=== PATIENT | male | born 1980 | race Caucasian/White ===

== ENCOUNTER 2020-09-19 10:35 | Emergency (ER) | payer MEDICAID, SELFPAY ==
[2020-09-19 10:38] VITALS: BP 120/73; PULSE 81; RESP 18; TEMP 36.7; O2SAT 100; BMI 22.1
--- NOTE | 2020-09-19 11:32 | ED.NECK ---
HPI - Neck Pain/Injury General Chief Complaint: Neck Pain/Injury Stated Complaint: neck pain Time Seen by Provider: 09/19/20 11:32 Source: patient Mode of arrival: ambulatory Limitations: no limitations History of Present Illness HPI Narrative: Patient is a 40-year-old male with no significant past medical history who reports 3 days of neck pain that he woke up with. States he does have a new pillow.. He has been using Daniel-Bonner with no relief. Denies any fevers cough chest pain shortness of breath. States any [id number] medication he has taken has not helped. Denies injury. Related Data Previous Rx's Medication Instructions Recorded cyclobenzaprine 5 mg PO TID PRN 3 Days #10 tab 09/19/20 naproxen 500 mg PO BID PRN #14 tab 09/19/20 Allergies Allergy/AdvReac Type Severity Reaction Status Date / Time No Known Allergies Allergy Unverified 02/09/20 17:06 [No Known Allergies*] Review of Systems Review of Systems: Yes all other systems are reviewed and are negative PMFSH Past Medical History Medical History Patient denies significant medical history Surgical History No pertinent past surgical history Social History Social History Advance Directives: No Advance Directives Information Provided: No Physical Exam Vital Signs: Vital Signs: Last Vital Signs Temp 98.0 F 09/19/20 10:38 Pulse 81 09/19/20 10:38 Resp 18 09/19/20 10:38 BP 120/73 09/19/20 10:38 Pulse Ox 100 09/19/20 10:38 Body Mass Index 22.1 Const: General: cooperative, healthy appearing and comfortable Nutritional Appearance: thin Orientation/consciousness: patient oriented x3 HENMT: Head: Yes normal to inspection, Yes normocephalic, Yes atraumatic, No abrasion, No Lam's sign and No raccoon eyes Ears: hearing grossly normal bilaterally and external ears normal General nose exam: Normal external nose present Face and sinus: Yes normal facial exam Neck: Neck: Yes normal visual inspection, No full ROM (Secondary to pain), Yes no meningeal signs, Yes trachea midline, No anterior neck swelling, No midline deformity, Yes tender and Yes torticollis Resp: Effort & Inspection: normal respiratory effort and able to speak in complete sentences Neuro: General: patient oriented x3 and no meningeal signs Course Course Course Narrative: Patient is a 40-year-old male with no significant past medical history who has had neck pain since getting a new pillow 3 days ago. Has used [id number] medications with no relief. Physical exam reveals toward a Colles, both sides of the neck. Patient's vital signs are stable. Will discharge with naproxen and muscle relaxer. Discharge Plan Discharge Clinical Impression: Muscle spasm Patient Disposition: Home, Self-Care Instructions: Muscle Spasm (ED) Additional Instructions: As discussed, please use ice or heat, whichever feels better, I sent prescriptions for naproxen and Flexeril to your pharmacy. If her neck pain does not improve in the next few days, please follow-up with your PCP. If you develop a fever that you can not control with Tylenol or Motrin, please return to the emergency department. Also, please replace her pillow is that seems to be the source of your issue. Prescriptions: New naproxen 500 mg tablet 500 mg PO BID PRN (Reason: pain) Qty: 14 RF: 0 cyclobenzaprine 5 mg tablet 5 mg PO TID PRN (Reason: muscle spasm) 3 Days Qty: 10 RF: 0 Stand Alone Forms: Work/School Release
== END 2020-09-19 12:13 | disposition home or self-care (01) ==
PROVIDERS: Emergency Provider Emergency Medicine Emergency Medical Services; PCP Internal Medicine
DX: M62.838 Other muscle spasm (principal); M54.2 Cervicalgia
CPT/HCPCS: 99283

== ENCOUNTER 2020-09-29 11:34 | Emergency (ER) | payer MEDICAID, SELFPAY ==
--- NOTE | ~2020-09-29 | XR_ITS ---
EXAMINATION: XR CERVICAL SPINE CLINICAL INFORMATION: Neck pain status post fall. COMPARISON: None TECHNIQUE: 3 views of the cervical spine were obtained. FINDINGS: There is reversal the normal cervical lordosis with normal spinal alignment. Mild to moderate multilevel degenerative changes are seen with disc space narrowing and moderate anterior osteophyte formation. There is no acute fracture. The odontoid process is intact. The prevertebral soft tissues are unremarkable. XR/XR cervical spine 2V IMPRESSION: 1. Reversal the normal cervical lordosis may be secondary to positioning of several muscle spasm. 2. Mild to moderate multilevel degenerative changes without acute abnormality.
[2020-09-29 11:38] VITALS: BP 135/48; PULSE 78; RESP 16; TEMP 36.4; O2SAT 100; BMI 22.1
--- NOTE | 2020-09-29 12:18 | ED_ITS ---
HPI - Neck Pain/Injury General Chief Complaint: Neck Pain/Injury Stated Complaint: fall Time Seen by Provider: 09/29/20 12:16 Source: patient Mode of arrival: ambulatory Limitations: no limitations History of Present Illness HPI Narrative: 40-year-old male here with neck pain. Patient tells me about a week ago he had a fall out of bed and since then he has had some neck discomfort. No head injury or loss of consciousness. Seen here several days ago and was evaluated. Pain thought to be musculoskeletal and he was prescribed naproxen and Flexeril. Pain is continued and he now has stiffness in his neck and a lot of pain with movement of his head. Related Data Previous Rx's Medication Instructions Recorded cyclobenzaprine 5 mg PO TID PRN 3 Days #10 tab 09/19/20 naproxen 500 mg PO BID PRN #14 tab 09/19/20 diazepam [Valium] 5 mg PO TID PRN #10 tab 09/29/20 ibuprofen 800 mg PO Q8H PRN #20 tab 09/29/20 Allergies Allergy/AdvReac Type Severity Reaction Status Date / Time No Known Allergies Allergy Unverified 02/09/20 17:06 [No Known Allergies*] Review of Systems Review of Systems: Yes all other systems are reviewed and are negative Constitutional: Constitutional: Reports no additional constitutional complaints, Denies body ache(s), Denies chills, Denies fever(s), Denies headache(s) and Denies weakness Eyes: Eyes: Reports no additional eye complaints and Denies change in vision ENT: Reports system reviewed and no additional complaints, except as documented, Denies dizziness, Denies headache(s), Denies nasal congestion, Denies nasal discharge and Reports neck pain Cardiovascular: Cardiovascular: Reports no additional cardiovascular complaints, Denies chest pain, Denies leg edema and Denies dyspnea Respiratory: Respiratory: Reports no additional respiratory complaints, Denies cough and Denies dyspnea Gastrointestinal: Gastrointestinal: Reports no additional gastrointestinal complaints, Denies abdominal pain, Denies diarrhea, Denies nausea and Denies vomiting Genitourinary: Genitourinary: Denies urinary incontinence Musculoskeletal: Musculoskeletal: Reports no additional musculoskeletal complaints, Denies back pain, Denies arthralgias, Denies joint swelling, Reports neck pain, Denies numbness and Denies tingling Integumentary/Breasts: Skin/Breast: Reports system reviewed and no additional complaints, except as docu and Denies rash Neurologic: Reports system reviewed and no additional complaints, except as documented, Denies Abnormal speech present, Denies dizziness, Denies headache(s), Denies numbness, Denies tingling and Denies weakness PMFSH Past Medical History Attestation statement: The following information was validated with the patient. Source: old records reviewed and nursing notes reviewed Medical History Patient denies significant medical history Surgical History No pertinent past surgical history Social History Social History Advance Directives: No Advance Directives Information Provided: No Physical Exam Vital Signs: Vital Signs: Last Vital Signs Temp 97.5 F 09/29/20 11:38 Pulse 78 09/29/20 11:38 Resp 16 09/29/20 11:38 BP 135/48 L 09/29/20 11:38 Pulse Ox 100 09/29/20 11:38 Body Mass Index 22.1 Const: General: cooperative, healthy appearing, comfortable and no acute distress Orientation/consciousness: patient oriented x3 Limitations: no limitations HENMT: Head: Yes normal to inspection Ears: hearing grossly normal bilaterally General nose exam: Normal external nose present Face and sinus: Yes normal facial exam Mouth: Normal oral and palatal mucosa present Throat: Yes posterior oropharynx normal Eyes: General: appearance normal, both eyes and all related structures Pupils: Equal, round and reactive pupils present Neck: Other: Patient has some cervical midline tenderness with no step-offs or deformities. Pain with rotation of the head and is limited due to pain. No pa in with flexion or extension Neck: Yes normal visual inspection, Yes no lymphadenopathy and Yes no meningeal signs Chest: Chest palpation & inspection: normal inspection of the chest Resp: Effort & Inspection: normal respiratory effort Auscultation: clear to auscultation bilaterally Cardio: Rate: regular rate Rhythm: regular rhythm Peripheral pulses: Peripheral pulses 2+ throughout GI: Inspection: Yes normal to inspection Palpation (GI): Soft to palpation and nontender Auscultation: normal bowel sounds Back/Spine/Pelvis: Thoracic/Lumbar Spine: thoracic and lumbar spine normal to inspection Skin: General skin exam: no rashes or lesions noted Neuro: General: patient oriented x3, no meningeal signs, no focal motor deficits and normal sensation to monofilament Cranial nerves: Yes CN's II-XII intact bilaterally, Yes Equal, round and reactive pupils present, Yes Bilaterally intact EOM present, Yes Nystagmus not present, Yes Normal facial strength present and Yes Midline tongue present Cognition (Neuro): normal cognition Speech: No Abnormal speech present Gait exam (Neuro): Normal gait present Motor exam (neuro): 5/5 motor strength present throughout Sensory Exam: Normal double simultaneous stimulation for sensation Extrem: General: Yes normal to inspection Course Course Course Narrative: 40-year-old male here with neck pain for the last week patient tells me initially had an injury. He has been seen and prescribed some anti-inflammatories and muscle relaxants with continued pain. On exam the patient has some obvious muscle spasms with musculoskeletal pain. He does have some midline tenderness but no step-offs or deformities with a normal neurological exam. Exam is consistent with torticollis. Will check imaging as this patient's 2nd visit and he has not had imaging to this point. Will provide analgesia. 1415-x-ray show no bony abnormality. Patient has much improvement after receiving Toradol im, Valium p.o. Likely torticollis. Reviewed worrisome signs and symptoms of when to return to the emergency department. Comfortable discharge home. MDM - Neck Pain/Injury Medical Records Attestation: I reviewed the patient's medical records. Lab Data Attestation: I reviewed the patient's lab results. Imaging Data cervical xray: Attestation: I personally reviewed and interpreted this imaging study as follows: Radiologist's impression: IMPRESSION: 1. Reversal the normal cervical lordosis may be secondary to positioning of several muscle spasm. 2. Mild to moderate multilevel degenerative changes without acute abnormality. Discharge Plan Discharge Clinical Impression: Torticollis Patient Disposition: Home, Self-Care Instructions: Spasmodic Torticollis (ED) Additional Instructions: Your x-ray showed no acute findings You have muscle spasm causing this stiff and painful neck. Gentle stretching with heat See your doctor Thursday as you may need physical therapy. Prescriptions: New ibuprofen 800 mg tablet 800 mg PO Q8H PRN (Reason: pain) Qty: 20 RF: 0 diazepam [Valium] 5 mg tablet 5 mg PO TID PRN (Reason: muscle spasm) Qty: 10 RF: 0 No Action naproxen 500 mg tablet 500 mg PO BID PRN (Reason: pain) Qty: 14 RF: 0 cyclobenzaprine 5 mg tablet 5 mg PO TID PRN (Reason: muscle spasm) 3 Days Qty: 10 RF: 0 Referrals: Radha King MD [Primary Care Provider] - 2 days Stand Alone Forms: Work/School Release Interventions: ED Discharge Assessment Last Done: 09/29/20 13:51 Discharge Date/Time: 09/29/20 13:51
[2020-09-29] MEDS: diazePAM 5 MG TABLET 10 MG PO (12:30)
[2020-09-29] MEDS: Ketorolac Tromethamine 60 MG/2 ML VIAL IM (12:30)
== END 2020-09-29 13:51 | disposition home or self-care (01) ==
PROVIDERS: Emergency Provider Emergency Medicine; PCP Internal Medicine
DX: G24.3 Spasmodic torticollis (principal); M54.2 Cervicalgia
CPT/HCPCS: 72040; 96372; 99283; 99284; J1885

== ENCOUNTER 2020-10-23 11:54 | Emergency (ER) | payer MEDICAID, SELFPAY ==
--- NOTE | ~2020-10-23 | CT_ITS ---
EXAMINATION: CT HEAD WITHOUT CONTRAST CLINICAL INFORMATION: Headache COMPARISON: None TECHNIQUE: Contiguous axial imaging was performed from the skull base to vertex without intravenous administration of contrast. This CT examination was performed using dose optimization techniques as appropriate, variously including the following: *Automated exposure control *Adjustment of mA and/or kV according to patient size (this includes techniques or standardized protocols for targeted exams where dose is matched to indication/reason for exam; i.e. extremities or head) *Use of iterative reconstruction technique DLP: 692 mGy-cm FINDINGS: There is no evidence of acute intracranial hemorrhage or territorial infarction. No abnormal mass effect or midline shift is seen. Harrington to white matter differentiation is well preserved. No extra-axial fluid collections are identified. The ventricles are normal in size. There is no abnormal attenuation within the brain parenchyma. The osseous structures and soft tissues are normal. The mastoid air cells and visualized portions of the paranasal sinuses are well aerated. CT/CT head/brain wo con IMPRESSION: No acute intracranial process seen.
[2020-10-23 12:07] VITALS: BP 99/48; PULSE 76; RESP 18; TEMP 36.8; O2SAT 99; BMI 22.1
--- NOTE | 2020-10-23 13:59 | ED.NECK ---
HPI - Neck Pain/Injury General Chief Complaint: Neck Pain/Injury Stated Complaint: pain on neck Time Seen by Provider: 10/23/20 13:59 History of Present Illness HPI Narrative: Patient complains of both neck plain and headache, the headache is over his whole head and down into his neck, the neck pain is worse with looking left and right, the he denies any fever chills, his neck pain began 6-8 weeks ago and he had a fall and came to this ER and had an x-ray and was diagnosed with muscle strain in his neck, headache was gradual onset and he believes it is associated with his neck pain as the neck pain has been going on for over a month and the headache gradually worsened over past week, no vision change no nausea or vomiting no numbness weakness or tingling no changes to bowel or bladder Related Data Previous Rx's Medication Instructions Recorded cyclobenzaprine 5 mg PO TID PRN 3 Days #10 tab 09/19/20 naproxen 500 mg PO BID PRN #14 tab 09/19/20 diazepam [Valium] 5 mg PO TID PRN #10 tab 09/29/20 ibuprofen 800 mg PO Q8H PRN #20 tab 09/29/20 acetaminophen 1,000 mg PO Q6H PRN #30 tab 10/23/20 cyclobenzaprine 5 mg PO TID PRN #20 tab 10/23/20 ibuprofen 600 mg PO Q6H PRN #20 tab 10/23/20 lidocaine 1 patch TOPICAL BID PRN #15 ea 10/23/20 Allergies Allergy/AdvReac Type Severity Reaction Status Date / Time No Known Allergies Allergy Verified 10/28/20 16:18 [No Known Allergies*] Review of Systems Review of Systems: Positive for neck pain and headache Negatives are no fever no chills no dizziness no weakness no fainting no feeling faint no numbness weakness or tingling no vision changes no nausea or vomiting no confusion, there is no chest pain no shortness of breath no abdominal pain no nausea vomiting or diarrhea no dysuria no incontinence, there is no skin rash Yes all other systems are reviewed and are negative [facility] Past Medical History Attestation statement: The following information was validated with the patient. [facility] Narrative: Patient denies any recent IV drug use Source: nursing notes reviewed Medical History (Updated 10/29/20 @ 00:01 by Kevin Mcgill) Hx of opioid abuse Patient denies significant medical history Surgical History No pertinent past surgical history Social History Social History Alcohol intake: never Patient Tobacco Use Status: Current everyday Tobacco user Substance Use Type: Heroin and Marijuana Physical Exam Vital Signs: Vital Signs: Last Vital Signs Temp 97.6 F 10/23/20 15:03 Pulse 59 10/23/20 15:03 Resp 14 10/23/20 15:03 BP 97/59 L 10/23/20 15:03 Pulse Ox 98 10/23/20 15:03 Body Mass Index 22.1 General appearance is no acute distress The head is normocephalic atraumatic Pupils are equal round reactive to light, extraocular motions are intact The ears have normal tympanic membrane The neck as bilateral posterior soft tissue tenderness, the neck can flex forward and back easily but has pain with lateral motion, there are no deformities there are no rashes The chest is clear to auscultation bilateral The heart no murmur The abdomen is soft nontender Extremities full range of motion x4 Neuro gait and balance are normal, communication both expression and understanding are normal, motor is 5/5 x4, stock puller strength is intact and symmetrical, sensation is intact and symmetrical Course Course Course Narrative: Patient without neurologic deficit complaining of neck pain and headache The CT scan was done to rule out bleed or mass and it was negative The patient is neck pain most likely musculoskeletal has been going on for almost 2 months and he is advised to follow with primary doctor and is given the phone number for [facility] He denies any recent drug use and denies any fever or chills, epidural abscess very unlikely Discharge Plan Discharge Clinical Impression: Headache, Neck pain Patient Disposition: Home, Self-Care Additional Instructions: CT of head to rule out mass or bleed was negative X-ray of cervical spine that was done a few weeks ago showed some arthritis Follow with primary doctor for referral to specialist, physical therapy may be helpful You can try [facility] but probably need a referral from a primary doctor [phone] You can try to follow with our orthopedist who may be able to get you into physical therapy Return anytime for weakness fever, any worse condition or any concerns Prescriptions: New acetaminophen 500 mg tablet 1,000 mg PO Q6H PRN (Reason: pain) Qty: 30 RF: 0 ibuprofen 600 mg tablet 600 mg PO Q6H PRN (Reason: pain) Qty: 20 RF: 0 cyclobenzaprine 5 mg tablet 5 mg PO TID PRN (Reason: muscle spasm) Qty: 20 RF: 0 lidocaine 4 % adhesive patch,medicated 1 patch topical BID PRN (Reason: pain) Qty: 15 RF: 0 No Action ibuprofen 800 mg tablet 800 mg PO Q8H PRN (Reason: pain) Qty: 20 RF: 0 diazepam [Valium] 5 mg tablet 5 mg PO TID PRN (Reason: muscle spasm) Qty: 10 RF: 0 naproxen 500 mg tablet 500 mg PO BID PRN (Reason: pain) Qty: 14 RF: 0 cyclobenzaprine 5 mg tablet 5 mg PO TID PRN (Reason: muscle spasm) 3 Days Qty: 10 RF: 0 Referrals: Gurmeet Ireland MD [Physician] - 2 days (Bilateral shoulder and neck pain) Stand Alone Forms: Work/School Release Interventions: ED Discharge Assessment Last Done: 10/23/20 15:52 Discharge Date/Time: 10/23/20 15:53
[2020-10-23 15:03] VITALS: BP 97/59; PULSE 59; RESP 14; TEMP 36.4; O2SAT 98
== END 2020-10-23 15:53 | disposition home or self-care (01) ==
PROVIDERS: Emergency Provider Emergency Medicine
DX: R51.9 Headache, unspecified (principal); M54.2 Cervicalgia
CPT/HCPCS: 70450; 99283

== ENCOUNTER 2020-10-28 15:56 | Emergency (ER) | payer MEDICAID, SELFPAY ==
--- NOTE | ~2020-10-28 | CT_ITS ---
EXAMINATION: CT CERVICAL SPINE CLINICAL INFORMATION: Reason for Exam cervucal epidural abscess? neck pain. elevated ESR. no MRI COMPARISON: No prior CT available, TECHNIQUE: Computed axial sagittal and coronal images acquired using department's standard protocol. This CT examination was performed using dose optimization techniques as appropriate, variously including the following: *Automated exposure control *Adjustment of mA and/or kV according to patient size (this includes techniques or standardized protocols for targeted exams where dose is matched to indication/reason for exam; i.e. extremities or head) *Use of iterative reconstruction technique CONTRAST: Study done without and with contrast, DLP: 323 mGy-cm FINDINGS: SKULL BASE: Visualized structures at skull base are normal, Included facial sinuses are clear, CERVICAL VERTEBRAE: Reversal of normal cervical lordosis likely spasm. DISCS: Narrowing of disc space and developed osteophytes suggests degenerative disc disease at C3-C4, C4-C5, C5-C6, C6-C7 and C7-T1. There is cortical irregularity of the odontoid process of C2, surrounding soft tissue swelling and increased single air bubble, raising concern for possible inflammatory or infectious process. Cannot rule out small epidural abscess. Refer image 54 series 10. C1-C2: There is no CT evidence of significant osseous narrowing of the central canal or neural foramen. C2-C3: There is no CT evidence of significant osseous narrowing of the central canal or neural foramen. C3-C4: There is no CT evidence of significant osseous narrowing of the central canal or neural foramen. C4-C5: There is no CT evidence of significant osseous narrowing of the central canal or neural foramen. C5-C6: There is no CT evidence of significant osseous narrowing of the central canal or neural foramen. C6-C7: There is no CT evidence of significant osseous narrowing of the central canal or neural foramen. C7-T1: There is no CT evidence of significant osseous narrowing of the central canal or neural foramen. CT/CT cervical spine w con IMPRESSION: 1. Reversal of normal cervical lordosis likely spasm. 2. Narrowing of disc spaces and developed large anterior osteophytes suggests degenerative disc disease, this is seen at multiple levels C3-C4 through C7-T1. 3. There is cortical irregularity subtle distortion of the odontoid process of C2 combined with surrounding soft tissue swelling and emphysematous air bubble, although nonspecific concerning for inflammatory or infection process including possible developing epidural abscess. Weaver image, CT scan has limited sensitivity evaluating the epidural space and visualizing of the spinal cord due to beam hardening artifact, would recommend clinically correlation and follow-up MRI with contrast.
[2020-10-28 16:18] VITALS: BP 115/71; PULSE 56; RESP 16; TEMP 37; O2SAT 97; BMI 22.1
[2020-10-28] MEDS: ondansetron HCL 4 MG/2 ML VIAL IVPUSH (17:53)
[2020-10-28] MEDS: 0.9 % Sodium Chloride 1,000 ML 999 ML IV (17:53)
[2020-10-28 17:54] LABS: MANUAL DIFF FLAG NO
[2020-10-28 18:00] VITALS: BP 115/60; PULSE 51; RESP 16; TEMP 37.7; O2SAT 97
--- NOTE | 2020-10-28 18:02 | ECG_ITS ---
Test Reason : NASUEA/VOMITING Blood Pressure : / mmHG Vent. Rate : 049 BPM Atrial Rate : 049 BPM P-R Int : 110 ms QRS Dur : 082 ms QT Int : 422 ms P-R-T Axes : 010 053 070 degrees QTc Int : 381 ms Sinus bradycardia with short HI Otherwise normal ECG When compared with ECG of 29-MAR-2005 20:50, Vent. rate has decreased BY [address] no longer depressed in Inferior leads Non-specific change in ST segment in Lateral leads QT has shortened Referred By: Kody Mejia Electronically Signed By:Jt Jolley
[2020-10-28 18:03] LABS: Basophils Percent Auto 0.1 % (0-2); Hemoglobin 10.7 g/dl (14.0-18.0); Imm Gran Abs Auto 0.06 X10*3/uL (0.00-0.03); Imm Gran Pct Auto 0.5 % (0.0-0.4); Lymphocytes Absolute Auto 0.7 X10*3/uL (1.2-4.9); Lymphocytes Percent Auto 5.8 % (20-40); Mean Corpuscular HGB Conc 32.4 g/dl (31.0-36.0); Mean Corpuscular Hemoglobin 27.9 pg (27.0-33.0); Mean Corpuscular Volume 86.2 fL (80-98); Mean Platelet Volume 9.6 fL (9.4-12.4); Monocytes Absolute Auto 0.5 X10*3/uL (0.1-1.2); Monocytes Percent Auto 3.9 % (2-11); Neutrophils Percent Auto 89.7 % (45-73); Platelet Count 310 X10*3/uL (160-400); Red Blood Count 3.83 X10*6/uL (4.60-5.80); Red Cell Distribution Width 14.1 % (11.0-16.0); White Blood Count 12.2 X10*3/uL (4.8-10.8)
[2020-10-28 18:18] LABS: COVID-19 Test Negative (Negative)
[2020-10-28 18:20] LABS: Anion Gap 15 (12-20); Blood Urea Nitrogen 27 mg/dL (9-16); Calcium 9.2 mg/dL (8.4-10.2); Carbon Dioxide 30 mmol/L (22-29); Chloride 97 mmol/L (96-108); Creatinine Clr Calc Pharmacy 96.4; Estimated Glomerular Filt Rate > 60; Glucose Random 124 mg/dL (60-115); Potassium 4.3 mmol/L (3.3-5.1); Sodium 138 mmol/L (135-145)
[2020-10-28 18:21] LABS: Alanine Aminotransferase 12 U/L (0-40); Albumin Level 3.7 g/dL (3.5-5.0); Alkaline Phosphatase 90 U/L (39-117); Aspartate Amino Transferase 12 U/L (5-37); Bilirubin Direct 0.2 mg/dL (0.0-0.5); Bilirubin Total 0.6 mg/dL (0.0-1.0); Lipase 8 U/L (8-78); Total Protein 8.2 g/dL (6.5-8.0)
--- NOTE | 2020-10-28 18:27 | ED_ITS ---
HPI - Nausea/Vomiting/Diarrhea General Chief complaint: Nausea/Vomiting/Diarrhea Stated complaint: vomiting Time Seen by Provider: 10/28/20 17:37 Source: patient Mode of arrival: ambulatory Limitations: no limitations History of Present Illness HPI Narrative: Patient presents to ED for nausea, and since yesterday after taking Suboxone. Patient states he missed his Suboxone doses on October 24 and October 25 and then on October 26 he used heroin and then on October 27 took Suboxone very early in the morning. Patient thinks he put himself in withdrawal due to now waiting long enough to do Suboxone before taking heroin. Patient used Suboxone less than 12 hours after using heroin. Patient secondary complaint chronic posterior cervical neck pain radiated up to head for 1 month. Patient states neck has felt stiff the past month. patieint states no photophobia, fever, or chills. Patient denies any recent head trauma or neck trauma. MD elicited complaint: nausea and vomiting Associated nausea: Yes Related Data Previous Rx's Medication Instructions Recorded cyclobenzaprine 5 mg PO TID PRN 3 Days #10 tab 09/19/20 naproxen 500 mg PO BID PRN #14 tab 09/19/20 diazepam [Valium] 5 mg PO TID PRN #10 tab 09/29/20 ibuprofen 800 mg PO Q8H PRN #20 tab 09/29/20 acetaminophen 1,000 mg PO Q6H PRN #30 tab 10/23/20 cyclobenzaprine 5 mg PO TID PRN #20 tab 10/23/20 ibuprofen 600 mg PO Q6H PRN #20 tab 10/23/20 lidocaine 1 patch TOPICAL BID PRN #15 ea 10/23/20 Allergies Allergy/AdvReac Type Severity Reaction Status Date / Time No Known Allergies Allergy Verified 10/28/20 16:18 [No Known Allergies*] Review of Systems Review of Systems: Yes all other systems are reviewed and are negative Constitutional: Constitutional: Reports as per HPI and Reports no additional constitutional complaints Eyes: Eyes: Reports as per HPI and Reports no additional eye complaints ENT: Reports system reviewed and no additional complaints, except as documented, Reports as per HPI and Reports neck pain Cardiovascular: Cardiovascular: Reports as per HPI and Reports no additional cardiovascular complaints Respiratory: Respiratory: Reports as per HPI and Reports no additional respiratory complaints Gastrointestinal: Gastrointestinal: Reports as per HPI, Reports no additional gastrointestinal complaints, Reports nausea and Reports vomiting Genitourinary: Genitourinary: Reports no additional male genitourinary complaints and Reports as per HPI Musculoskeletal: Musculoskeletal: Reports no additional musculoskeletal complaints, Reports as per HPI and Reports neck pain Neurologic: Reports system reviewed and no additional complaints, except as documented and Reports as per HPI Psychiatric: Psychiatric: Reports no additional psychiatric complaints and Reports as per HPI [facility] Past Medical History Medical History (Updated 10/28/20 @ 22:10 by NEHAL Caballero) Hx of opioid abuse Patient denies significant medical history Surgical History No pertinent past surgical history Social History Social History Alcohol intake: never Patient Tobacco Use Status: Current everyday Tobacco user Use of substances other than those prescribed or required for medical reasons: Yes Substance Use Type: Heroin and Marijuana Advance Directives: No Advance Directives Information Provided: No Physical Exam Vital Signs: Vital Signs: Last Vital Signs Temp 98.4 F 10/28/20 21:16 Pulse 56 10/28/20 21:16 Resp 16 10/28/20 21:16 BP 107/64 10/28/20 21:16 Pulse Ox 98 10/28/20 21:16 Body Mass Index 22.1 Const: General: cooperative, healthy appearing, comfortable, no acute distress, well developed, alert and awake Orientation/consciousness: patient oriented x3 HENMT: Head: Yes normal to inspection, Yes No palpable skull fracture present, Yes normocephalic, Yes atraumatic, No abrasion, No Acrocyanosis present, No Lam's sign, No contusion, No cranial bruits, No hematoma, No laceration, No occipital foramen tenderness, No palpable skull fracture, No raccoon eyes, No scalp lesion, No scalp tenderness, No Temporal artery tenderness present and No periorbital ecchymosis Eyes: Other: Negative photophobia Neck: Neck: Yes normal visual inspection, Yes full ROM, Yes no lymp hadenopathy, Yes no meningeal signs, Yes trachea midline, Yes supple and Yes tender Chest: Chest palpation & inspection: normal inspection of the chest and normal palpation of entire chest wall Resp: Effort & Inspection: normal respiratory effort and able to speak in complete sentences Auscultation: clear to auscultation bilaterally Cardio: Jugular venous distension: no JVD Heart sounds: S1 normal heart sound present and S2 normal heart sound present GI: Inspection: Yes normal to inspection and No abdominal wall ecchymosis Palpation (GI): Soft to palpation, not firm, nontender, no guarding and not rigid : General: No CVA tenderness and Yes no CVA tenderness Back/Spine/Pelvis: Back: no CVA tenderness, No CVA tenderness and No back tenderness Skin: General skin exam: no rashes or lesions noted and elasticity normal Neuro: Other: All extremities equal strength 5+. Negative pronator drift. Negative slurred speech. negative facial droop. [id number] and rapid hand movement intact. Negative Romberg. General: patient oriented x3, gait normal, no meningeal signs and CN's II-XI intact bilaterally Cranial nerves: Yes CN's II-XII intact bilaterally Extrem: General: Yes normal to inspection and Yes full ROM Psych: Appearance: grossly normal, well kempt and not disheveled Course Course Course Narrative: Patient given labs, fluid, blood work, EKG, COVID swab ordered. Reevaluation(s) Reevaluation #1: Patient is sleeping comfortably in bed. Patient COVID swab came back negative. Patient's has low-grade fever 99.9. Patient has elevation white blood cell count. Patient not having any nausea or vomitting in the ED. Nausea and vomiting might have been contributed to withdrawal symptoms. Patient informed me having neck pain is worse of movement. Due to history of drug abuse labs was sent for ESR and CRP. Patient had a normal head CT in October 23. EKG does show sinus bradycardia. Troponin negative. Time: 17:47 Reevaluation #2: Patient's ESR and CRP came back elevated. Negative for any neuro deficit. Patient denies any headache. Will send patient for cervical spine CT for evaluation for possible cervical spine epidural abscess due to us not having MRI at this time. Not suspecting meningitis. Reevaluation #3: CT scan shows possibility for cervical epidural abscess. I w ant to re-evaluate patient patient does not have any neuro deficit of extremities. Patient is not toxic appearing. Patient vital signs are normal. Spoke with Dr. Encarnacion of [facility] for transfer for possibility of cervical spine epidural abscess and for confirmation with MRI. He accepted the case. Patient agreeable with plan to be transferred. Time: 22:08 MDM - Nausea/Vomiting/Diarrhea MDM Narrative Medical decision making narrative: Rule out cervical epidural spine abscess Lab Data Result diagrams: 10/28/20 17:47 10/28/20 17:47 Labs: Lab Results 10/28/20 10/28/20 10/28/20 Range/Units 17:47 17:47 17:47 WBC 12.2 H (4.8-10.8) X10*3/uL RBC 3.83 L (4.60-5.80) X10*6/uL Hgb 10.7 L (14.0-18.0) g/dl Hct 33.0 L (42-52) % MCV 86.2 (80-98) fL MCH 27.9 (27.0-33.0) pg MCHC 32.4 (31.0-36.0) g/dl RDW 14.1 (11.0-16.0) % Plt Count 310 (160-400) X10*3/uL MPV 9.6 (9.4-12.4) fL Immature Gran % (Auto) 0.5 H (0.0-0.4) % Neut % (Auto) 89.7 H (45-73) % Lymph % (Auto) 5.8 L (20-40) % [place] % (Auto) 3.9 (2-11) % Eos % (Auto) 0.0 (0-4) % Baso % (Auto) 0.1 (0-2) % Lymph # (Auto) 0.7 L (1.2-4.9) X10*3/uL [place] # (Auto) 0.5 (0.1-1.2) X10*3/uL Eos # (Auto) 0.0 (0.0-0.4) X10*3/uL Baso # (Auto) 0.0 (0.0-0.2) X10*3/uL Abs Immat Gran (auto) 0.06 H (0.00-0.03) X10*3/uL Absolute Neuts (auto) 11.0 H (2.0-8.3) X10*3/uL Absolute Nucleated RBC 0.000 (0.0-0.012) X10*3/uL Nucleated RBC % (auto) 0.0 (0.0-0.2) /100WBC ESR (0-15) MM/HR Sodium 138 (135-145) mmol/L Potassium 4.3 (3.3-5.1) mmol/L Chloride 97 (96-108) mmol/L Carbon Dioxide 30 H (22-29) mmol/L Anion Gap 15 (12-20) BUN 27 H (9-16) mg/dL Creatinine 0.97 (0.5-1.4) mg/dL Estim Creat Clear Calc 96.4 Estimated GFR > 60 Random Glucose 124 H (60-115) mg/dL Calcium 9.2 (8.4-10.2) mg/dL Total Bilirubin 0.6 (0.0-1.0) mg/dL Direct Bilirubin 0.2 (0.0-0.5) mg/dL AST 12 (5-37) U/L ALT 12 (0-40) U/L Alkaline Phosphatase 90 (39-117) U/L Troponin I High Sens (<3.5-35.0) ng/L C-Reactive Protein 11.93 H (< or = 0.50) mg/dL Total Protein 8.2 H (6.5-8.0) g/dL Albumin 3.7 (3.5-5.0) g/dL Lipase 8 (8-78) U/L Urine Color Urine Appearance Urine pH (5.0-8.0) Ur Specific Odell (1.005-1.025) Urine Protein (NEG-TRACE) MG/DL Urine Glucose (UA) (NEG) MG/DL Urine Ketones (NEG) MG/DL Urine Blood (NEG) Urine Nitrite (NEG) Ur Leukocyte Esterase (NEG) Urine RBC (0) /HPF Urine WBC (0-4) /HPF Ur Squamous Epith Cells /LPF Urine Bacteria /LPF Urine Mucus /LPF Urine Opiates Screen (Not Detect) Ur Barbiturates Screen (Not Detect) Ur Phencyclidine Scrn (Not Detect) Ur Amphetamines Screen (Not Detect) U Benzodiazepines Scrn (Not Detect) Urine Cocaine Screen (Not Detect) U Marijuana (THC) Screen (Not Detect) COVID-19 ([facility]) (Negative) COVID-19 Clin Com 06/06/21 06/06/21 06/06/21 Range/Units 17:47 17:47 19:20 WBC (4.8-10.8) X10*3/uL RBC (4.60-5.80) X10*6/uL Hgb (14.0-18.0) g/dl Hct (42-52) % MCV (80-98) fL MCH (27.0-33.0) pg MCHC (31.0-36.0) g/dl RDW (11.0-16.0) % Plt Count (160-400) X10*3/uL MPV (9.4-12.4) fL Immature Gran % (Auto) (0.0-0.4) % Neut % (Auto) (45-73) % Lymph % (Auto) (20-40) % [place] % (Auto) (2-11) % Eos % (Auto) (0-4) % Baso % (Auto) (0-2) % Lymph # (Auto) (1.2-4.9) X10*3/uL [place] # (Auto) (0.1-1.2) X10*3/uL Eos # (Auto) (0.0-0.4) X10*3/uL Baso # (Auto) (0.0-0.2) X10*3/uL Abs Immat Gran (auto) (0.00-0.03) X10*3/uL Absolute Neuts (auto) (2.0-8.3) X10*3/uL Absolute Nucleated RBC (0.0-0.012) X10*3/uL Nucleated RBC % (auto) (0.0-0.2) /100WBC ESR 98 H (0-15) MM/HR Sodium (135-145) mmol/L Potassium (3.3-5.1) mmol/L Chloride (96-108) mmol/L Carbon Dioxide (22-29) mmol/L Anion Gap (12-20) BUN (9-16) mg/dL Creatinine (0.5-1.4) mg/dL Estim Creat Clear Calc Estimated GFR Random Glucose (60-115) mg/dL Calcium (8.4-10.2) mg/dL Total Bilirubin (0.0-1.0) mg/dL Direct Bilirubin (0.0-0.5) mg/dL AST (5-37) U/L ALT (0-40) U/L Alkaline Phosphatase (39-117) U/L Troponin I High Sens < 3.5 (<3.5-35.0) ng/L C-Reactive Protein (< or = 0.50) mg/dL Total Protein (6.5-8.0) g/dL Albumin (3.5-5.0) g/dL Lipase (8-78) U/L Urine Color Urine Appearance Urine pH (5.0-8.0) Ur Specific Odell (1.005-1.025) Urine Protein (NEG-TRACE) MG/DL Urine Glucose (UA) (NEG) MG/DL Urine Ketones (NEG) MG/DL Urine Blood (NEG) Urine Nitrite (NEG) Ur Leukocyte Esterase (NEG) Urine RBC (0) /HPF Urine WBC (0-4) /HPF Ur Squamous Epith Cells /LPF Urine Bacteria /LPF Urine Mucus /LPF Urine Opiates Screen (Not Detect) Ur Barbiturates Screen (Not Detect) Ur Phencyclidine Scrn (Not Detect) Ur Amphetamines Screen (Not Detect) U Benzodiazepines Scrn (Not Detect) Urine Cocaine Screen (Not Detect) U Marijuana (THC) Screen (Not Detect) COVID-19 ([facility]) Negative (Negative) COVID-19 Clin Com See Note 10/28/20 10/28/20 Range/Units 19:21 19:21 WBC (4.8-10.8) X10*3/uL RBC (4.60-5.80) X10*6/uL Hgb (14.0-18.0) g/dl Hct (42-52) % MCV (80-98) fL MCH (27.0-33.0) pg MCHC (31.0-36.0) g/dl RDW (11.0-16.0) % Plt Count (160-400) X10*3/uL MPV (9.4-12.4) fL Immature Gran % (Auto) (0.0-0.4) % Neut % (Auto) (45-73) % Lymph % (Auto) (20-40) % [place] % (Auto) (2-11) % Eos % (Auto) (0-4) % Baso % (Auto) (0-2) % Lymph # (Auto) (1.2-4.9) X10*3/uL [place] # (Auto) (0.1-1.2) X10*3/uL Eos # (Auto) (0.0-0.4) X10*3/uL Baso # (Auto) (0.0-0.2) X10*3/uL Abs Immat Gran (auto) (0.00-0.03) X10*3/uL Absolute Neuts (auto) (2.0-8.3) X10*3/uL Absolute Nucleated RBC (0.0-0.012) X10*3/uL Nucleated RBC % (auto) (0.0-0.2) /100WBC ESR (0-15) MM/HR Sodium (135-145) mmol/L Potassium (3.3-5.1) mmol/L Chloride (96-108) mmol/L Carbon Dioxide (22-29) mmol/L Anion Gap (12-20) BUN (9-16) mg/dL Creatinine (0.5-1.4) mg/dL Estim Creat Clear Calc Estimated GFR Random Glucose (60-115) mg/dL Calcium (8.4-10.2) mg/dL Total Bilirubin (0.0-1.0) mg/dL Direct Bilirubin (0.0-0.5) mg/dL AST (5-37) U/L ALT (0-40) U/L Alkaline Phosphatase (39-117) U/L Troponin I High Sens (<3.5-35.0) ng/L C-Reactive Protein (< or = 0.50) mg/dL Total Protein (6.5-8.0) g/dL Albumin (3.5-5.0) g/dL Lipase (8-78) U/L Urine Color YELLOW Urine Appearance CLEAR Urine pH 6.0 (5.0-8.0) Ur Specific Odell >= 1.030 H (1.005-1.025) Urine Protein 1+ H (NEG-TRACE) MG/DL Urine Glucose (UA) NEG (NEG) MG/DL Urine Ketones NEG (NEG) MG/DL Urine Blood TRACE (NEG) Urine Nitrite NEG (NEG) Ur Leukocyte Esterase NEG (NEG) Urine RBC 1-4 (0) /HPF Urine WBC 0-2 (0-4) /HPF Ur Squamous Epith Cells TRACE /LPF Urine Bacteria NONE /LPF Urine Mucus 1+ /LPF Urine Opiates Screen POSITIVE H (Not Detect) Ur Barbiturates Screen Not Detected (Not Detect) Ur Phencyclidine Scrn Not Detected (Not Detect) Ur Amphetamines Screen Not Detected (Not Detect) U Benzodiazepines Scrn Not Detected (Not Detect) Urine Cocaine Screen Not Detected (Not Detect) U Marijuana (THC) Screen POSITIVE H (Not Detect) COVID-19 ([facility]) (Negative) COVID-19 Clin Com ECG Data Interpretation: Sinus bradycardia. Ventricular rate 49. VT interval 1-10. QRS 82. QTC 381. Negative STEMI Critical Care Time Critical Care Time Critical Care Time: Yes Total Critical Care Time: 60 Attestation: Cervical spine epidural abscess. Called [facility] for transfer. Case is accepted by Dr. Encarnacion of [facility] ED. Discharge Plan Discharge Clinical Impression: Abscess in epidural space of cervical spine Patient Disposition: [facility] Transfer Details: [facility] Instructions: Abscess (ED) Prescriptions: No Action ibuprofen 800 mg tablet 800 mg PO Q8H PRN (Reason: pain) Qty: 20 RF: 0 diazepam [Valium] 5 mg tablet 5 mg PO TID PRN (Reason: muscle spasm) Qty: 10 RF: 0 acetaminophen 500 mg tablet 1,000 mg PO Q6H PRN (Reason: pain) Qty: 30 RF: 0 ibuprofen 600 mg tablet 600 mg PO Q6H PRN (Reason: pain) Qty: 20 RF: 0 cyclobenzaprine 5 mg tablet 5 mg PO TID PRN (Reason: muscle spasm) Qty: 20 RF: 0 lidocaine 4 % adhesive patch,medicated 1 patch topical BID PRN (Reason: pain) Qty: 15 RF: 0 naproxen 500 mg tablet 500 mg PO BID PRN (Reason: pain) Qty: 14 RF: 0 cyclobenzaprine 5 mg tablet 5 mg PO TID PRN (Reason: muscle spasm) 3 Days Qty: 10 RF: 0
[2020-10-28 18:41] LABS: Troponin-I High Sensitivity < 3.5 ng/L (<3.5-35.0)
[2020-10-28 19:00] LABS: C Reactive Protein 11.93 mg/dL (< or = 0.50)
[2020-10-28 19:30] LABS: Appearance Urine CLEAR; Color Urine YELLOW; Glucose Urine UA NEG (NEG); Leukocyte Esterase Urine NEG (NEG); Nitrite Urine NEG (NEG); Specific Gravity - Urine >= 1.030 (1.005-1.025); Urine Blood TRACE (NEG); Urine Ketones NEG (NEG); Urine Protein 1+ MG/DL (NEG-TRACE)
[2020-10-28 19:41] LABS: Mucus Urine 1+ /LPF; Squamous Epithelial Cell Urine TRACE /LPF; WBC Urine 0-2 /HPF (0-4)
[2020-10-28 20:04] LABS: Amphetamine Screen Urine Not Detected (Not Detect); Barbiturates, Urine Not Detected (Not Detect); Benzodiazepines Screen Urine Not Detected (Not Detect); Cannabinoid Screen Urine POSITIVE (Not Detect); Cocaine Screen Urine Not Detected (Not Detect); Opiate Screen Urine POSITIVE (Not Detect); Phencyclidine Screen Urine Not Detected (Not Detect)
[2020-10-28 20:09] LABS: Erythrocyte Sedimentation Rate 98 MM/HR (0-15)
[2020-10-28] MEDS: iohexoL 350 MG/ML 100 ML INFUS..BTL IV (21:02)
[2020-10-28 21:16] VITALS: BP 107/64; PULSE 56; RESP 16; TEMP 36.9; O2SAT 98
== END 2020-10-28 23:18 | disposition short-term general hospital (02) ==
PROVIDERS: Physician Assistant; Emergency Provider Emergency Medicine
DX: G06.1 Intraspinal abscess and granuloma (principal); F11.20 Opioid dependence, uncomplicated; M54.2 Cervicalgia; R00.1 Bradycardia, unspecified; Z20.822 Contact with and (suspected) exposure to COVID-19; R11.2 Nausea with vomiting, unspecified; R50.9 Fever, unspecified; F17.210 Nicotine dependence, cigarettes, uncomplicated; F12.90 Cannabis use, unspecified, uncomplicated
CPT/HCPCS: 36415; 72126; 80048; 80076; 80307; 81001; 83690; 84484; 85025; 85652; 86140; 87635; 93005; 96361; 96374; 99285; 99291; J2405; Q9967

== ENCOUNTER 2020-12-12 11:14 | Emergency (ER) | payer MEDICAID, SELFPAY ==
[2020-12-12 11:18] VITALS: RESP 17; BMI 22.9
[2020-12-12 11:25] VITALS: BP 128/85; PULSE 99; RESP 18; TEMP 36.4; O2SAT 99
--- NOTE | 2020-12-12 11:26 | ED_ITS ---
HPI - Overdose General Chief Complaint: Overdose Stated Complaint: OD,2MG NARCAN GIVEN Time Seen by Provider: 12/12/20 11:19 Source: patient and EMS Mode of arrival: EMS Limitations: no limitations History of Present Illness MD complaint: accidental overdose Onset (ago): minute(s) Timing confirmed by: family member Context: Accidental Overdose: wanted to get high Treatments Prior to Arrival: narcan (2mg IM, was bagged no trauma, 911 called by friend) Related Data Previous Rx's Medication Instructions Recorded cyclobenzaprine 5 mg PO TID PRN 3 Days #10 tab 09/19/20 naproxen 500 mg PO BID PRN #14 tab 09/19/20 diazepam [Valium] 5 mg PO TID PRN #10 tab 09/29/20 ibuprofen 800 mg PO Q8H PRN #20 tab 09/29/20 acetaminophen 1,000 mg PO Q6H PRN #30 tab 10/23/20 cyclobenzaprine 5 mg PO TID PRN #20 tab 10/23/20 ibuprofen 600 mg PO Q6H PRN #20 tab 10/23/20 lidocaine 1 patch TOPICAL BID PRN #15 ea 10/23/20 Allergies Allergy/AdvReac Type Severity Reaction Status Date / Time No Known Allergies Allergy Verified 10/28/20 16:18 [No Known Allergies*] Review of Systems Review of Systems: Constitutional : No Weight loss, No Fever, No Chills, No Fatigue, No Malaise ENT/Mouth : No sore throat, No Rhinorrhea Eyes: No Eye Pain, No Swelling, No Redness Cardiovascular : No Chest Pain, No SOB, No Dyspnea on Exertion, No Orthopnea, No Edema, No Palpitations Respiratory : No Cough, No Sputum, No Wheezing Gastrointestinal : No Nausea, No Vomiting, No Diarrhea, No Constipation, No abdominal Pain, No Hematochezia, No Melena Genitourinary : No Dysuria, No Urinary Frequency, No Hematuria, Musculoskeletal : No joint pain, No Myalgias, No Joint Swelling Skin : No Skin Lesions, No rash Neuro : No Weakness, No Numbness, No Dizziness, No Headache Psych : No Anxiety/Panic, No Depression, no SI Heme/Lymph: No Bruising, No Bleeding,No Lymphadenopathy Endocrine : No Polyuria, No Polydipsia All other systems reviewed and are negative COUNTS INCLUDE 234 BEDS AT THE [facility] Past Medical History Attestation statement: The following information was validated with the patient. Medical History Hx of opioid abuse Patient denies significant medical history Surgical History No pertinent past surgical history Social History Social History Alcohol intake: never Patient Tobacco Use Status: Current everyday Tobacco user Substance Use Type: Heroin and Marijuana Advance Directives: No Advance Directives Information Provided: Yes Physical Exam Vital Signs: Vital Signs: Last Vital Signs Temp 97.5 F 12/12/20 11:25 Pulse 99 12/12/20 11:25 Resp 18 12/12/20 11:25 BP 128/85 12/12/20 11:25 Pulse Ox 99 12/12/20 11:25 Body Mass Index 22.9 Appearance: Alert. Oriented X3. No acute distress. Anxious Eyes: Pupils equal, round and reactive to light. ENT: Pharynx normal. Neck: Normal inspection. Neck supple. CVS: Normal heart rate and rhythm. Pulses normal. Respiratory: No respiratory distress. Breath sounds normal. Abdomen: Soft and non-tender. Skin: Skin warm and diaphoretic Normal skin color. Normal skin turgor. Extremities: No lower extremity edema. No calf ttp Neuro: Oriented X 3. No motor deficit. No sensory deficit. Course Course Course Narrative: refusing to stay, GCS 15, alert and oriented, aware he could re overdose and , given narcan and refusing to stay MDM - Overdose MDM Narrative Medical decision making narrative: 40 yo male accidental heroin OD does not want detox or suboxone information, will take narcan home with him, no SI, only agrees to stay 45 minutes Discharge Plan Discharge Clinical Impression: Heroin overdose Patient Disposition: Left Against Medical Advice Instructions: Opioid Use Disorder (ED), Against Medical Advice (ED) Additional Instructions: return to ED for any worsening symptoms or concerns YOU CAN RE OVERDOSE AND PLEASE CARRY NARCAN AND STAY WITH A RESPONSIBLE ADULT Prescriptions: No Action ibuprofen 800 mg tablet 800 mg PO Q8H PRN (Reason: pain) Qty: 20 RF: 0 diazepam [Valium] 5 mg tablet 5 mg PO TID PRN (Reason: muscle spasm) Qty: 10 RF: 0 acetaminophen 500 mg tablet 1,000 mg PO Q6H PRN (Reason: pain) Qty: 30 RF: 0 ibuprofen 600 mg tablet 600 mg PO Q6H PRN (Reason: pain) Qty: 20 RF: 0 cyclobenzaprine 5 mg tablet 5 mg PO TID PRN (Reason: muscle spasm) Qty: 20 RF: 0 lidocaine 4 % adhesive patch,medicated 1 patch topical BID PRN (Reason: pain) Qty: 15 RF: 0 naproxen 500 mg tablet 500 mg PO BID PRN (Reason: pain) Qty: 14 RF: 0 cyclobenzaprine 5 mg tablet 5 mg PO TID PRN (Reason: muscle spasm) 3 Days Qty: 10 RF: 0
[2020-12-12] MEDS: Naloxone HCl Nasal TAKE HOME 4 MG SPRAY NOSTRILALT (11:40)
== END 2020-12-12 11:42 | disposition left against medical advice (07) ==
PROVIDERS: Emergency Provider Emergency Medicine
DX: T40.1X1A Poisoning by heroin, accidental (unintentional), initial encounter (principal); F11.10 Opioid abuse, uncomplicated; Y92.9 Unspecified place or not applicable
CPT/HCPCS: 99283

== ENCOUNTER 2021-05-13 07:55 | Emergency (ER) | payer MEDICAID, SELFPAY ==
--- NOTE | ~2021-05-13 | CT_ITS ---
EXAMINATION: CT FACIAL BONES WITH CONTRAST CLINICAL INFORMATION: Left-sided facial swelling COMPARISON: None TECHNIQUE: Axial 3 mm thin and reformatted 1.5 mm thin sagittal coronal images of facial bones were obtained. This CT examination was performed using dose optimization techniques as appropriate, variously including the following: *Automated exposure control *Adjustment of mA and/or kV according to patient size (this includes techniques or standardized protocols for targeted exams where dose is matched to indication/reason for exam; i.e. extremities or head) *Use of iterative reconstruction technique DLP: 436 mGy-cm FINDINGS: There is no acute maxillofacial fracture. The pterygoid plates are intact. The zygomatic arches are intact. The lamina papyracea are intact. The orbital rims are intact. There is mild mucoperiosteal thickening bilateral maxillary and ethmoid sinuses. Rest of the paranasal sinuses are well-aerated. No air-fluid levels are seen. There is mild deviation of the nasal septum to the right. There are hypertrophic changes of the turbinates with nasal cavity airway narrowing. The lateral estimated commissure frontoethmoidal recesses are obstructed from mucoperiosteal thickening. The bony sinus barrientos are intact. The lamina papyracea are intact. The ethmoid roofs are symmetric. The carotid canals are normally covered by bone. There is diffuse dental disease involving periapical cyst in the upper and lower teeth bilaterally. There is a fractured last molar tooth. There is no mural buckle abscess suspected. However the patient is diffuse left maxillary and mandibular soft tissue cellulitis The mastoid air cells and visualized middle ear cavities are well-aerated. The orbits are normal. The TMJs are unremarkable. The imaged portions of the brain demonstrate no acute abnormality. CT/CT facial bones w con IMPRESSION: Left maxillary soft tissue swelling. Abnormal dental disease with bilateral periapical cyst involving virtually every tooth in the upper and lower jaw. There is moderate maxillary soft tissue swelling/cellulitis with no alveolar or buccal abscess or mass visualized. There is no osteomyelitis of the jaw. Bilateral maxillary and ethmoid sinusitis with obstructed ostiomeatal and frontoethmoidal recesses from mucosal thickening.
[2021-05-13 08:01] VITALS: BP 105/50; PULSE 77; RESP 18; TEMP 36.3; O2SAT 98; BMI 23.3
--- NOTE | 2021-05-13 10:46 | ED.DENTAL ---
HPI - Dental/Oral General Chief complaint: General Medical Stated complaint: facial swelling Time Seen by Provider: 05/13/21 10:32 Source: patient Mode of arrival: ambulatory Limitations: no limitations History of Present Illness MD Complaint: tooth pain (facial swelling) Teeth map: 1. Onset (ago): day(s) (just woke up with this) Duration: constant Severity: moderate Relieving factors: nothing Exacerbating factors: chewing, cold and heat Context: history of dental caries Associated symptoms: other (facial swelling gum swelling) Treatment prior to arrival: none Related Data Previous Rx's Medication Instructions Recorded cyclobenzaprine 5 mg tablet 5 mg PO TID PRN 3 Days #10 tab 09/19/20 naproxen 500 mg tablet 500 mg PO BID PRN #14 tab 09/19/20 diazepam 5 mg tablet (Valium) 5 mg PO TID PRN #10 tab 09/29/20 ibuprofen 800 mg tablet 800 mg PO Q8H PRN #20 tab 09/29/20 acetaminophen 500 mg tablet 1,000 mg PO Q6H PRN #30 tab 10/23/20 cyclobenzaprine 5 mg tablet 5 mg PO TID PRN #20 tab 10/23/20 ibuprofen 600 mg tablet 600 mg PO Q6H PRN #20 tab 10/23/20 lidocaine 4 % topical patch 1 patch TOPICAL BID PRN #15 ea 10/23/20 amoxicillin 875 mg-potassium 1 tab PO BID #14 tab 05/13/21 clavulanate 125 mg tablet (Augmentin) Allergies Allergy/AdvReac Type Severity Reaction Status Date / Time No Known Allergies Allergy Verified 10/28/20 16:18 [No Known Allergies*] Review of Systems Review of Systems: Constitutional : No Fever, No Chills ENT/Mouth : No swallowing difficulty, no change in voice, positive dental pain, positive jaw pain, positive facial swelling Eyes: No Eye Pain, No Swelling Cardiovascular : No Chest Pain, No SOB Respiratory : No Cough, No Sputum Gastrointestinal : No Nausea, No Vomiting, No Diarrhea Genitourinary : No Dysuria Musculoskeletal : No Myalgias Skin : No rash Neuro : No Weakness, No Numbness, No Headache All other systems reviewed and are negative PMFSH Past Medical History Medical History Hx of opioid abuse Patient denies significant medical history Surgical History No pertinent past surgical history Social History Social History Alcohol intake: never Patient Tobacco Use Status: Current everyday Tobacco user Substance Use Type: Heroin and Marijuana Advance Directives: Yes Advance Directives Information Provided: Yes Advance Directives on File: No Physical Exam Vital Signs: Vital Signs: Last Vital Signs Temp 97.7 F 05/13/21 13:01 Pulse 52 05/13/21 13:01 Resp 18 05/13/21 13:01 BP 93/44 L 05/13/21 13:01 Pulse Ox 100 05/13/21 13:01 BMI result Body Mass Index 23.3 Appearance: Alert. Oriented X3. No acute distress. Eyes: Pupils equal, round and reactive to light. ENT: L cheek moderate swelling up to eye, EOMi no pain with movement, very poor dentition noted - no celestino abscess on gums Neck: Normal inspection. Neck supple. CVS: Normal heart rate and rhythm. Pulses normal. Respiratory: No respiratory distress. Breath sounds normal. Abdomen: Soft and nontender. Skin: Skin warm and dry. Normal skin color. Normal skin turgor. Extremities: No lower extremity edema. No calf ttp Neuro: Oriented X 3. No motor deficit. No sensory deficit. Course Course Course Narrative: no WBC count negative lactic acid, BP low but suspect chronic no tachycardia - CT scan no osteo no abscess can trial oral antibiotics as outpatient with close follow up swelling has improved since time and he wants to try oral aware he needs to see dentist MDM - Dental/Oral MDM Narrative Medical decision making narrative: 40 yo male non diabetic here with c/o L sided facial swelling and tooth pain no obvious abscess of tooth to I/D at this time will need labs, IV antibiotics CT scan to assess extent of abscess - dispo per results and findings. no airway issues, no pain with EOM, no sublingual or submandibular swelling Lab Data Result diagrams: 05/13/21 11:00 05/13/21 11:00 Labs: Lab Results 05/13/21 05/13/21 05/13/21 Range/Units 10:52 11:00 11:00 WBC 8.6 (4.8-10.8) X10*3/uL RBC 3.69 L (4.60-5.80) X10*6/uL Hgb 10.8 L (14.0-18.0) g/dl Hct 32.3 L (42.0-52.0) % MCV 87.5 (80.0-98.0) fL MCH 29.3 (27.0-33.0) pg MCHC 33.4 (31.0-36.0) g/dl RDW 13.7 (11.0-16.0) % Plt Count 201 (160-400) X10*3/uL MPV 10.2 (9.4-12.4) fL Immature Gran % (Auto) 0.2 (0.0-0.4) % Neut % (Auto) 81.6 H (45-73) % Lymph % (Auto) 11.3 L (20-40) % [place] % (Auto) 6.1 (2-11) % Eos % (Auto) 0.7 (0-4) % Baso % (Auto) 0.1 (0-2) % Lymph # (Auto) 1.0 L (1.2-4.9) X10*3/uL [place] # (Auto) 0.5 (0.1-1.2) X10*3/uL Eos # (Auto) 0.1 (0.0-0.4) X10*3/uL Baso # (Auto) 0.0 (0.0-0.2) X10*3/uL Abs Immat Gran (auto) 0.02 (0.00-0.03) X10*3/uL Absolute Neuts (auto) 7.0 (2.0-8.3) x10*3/uL Absolute Nucleated RBC 0.000 (0.0-0.012) X10*3/uL Nucleated RBC % (auto) 0.0 (0.0-0.2) /100WBC Sodium 137 (135-145) mmol/L Potassium 4.3 (3.3-5.1) mmol/L Chloride 103 (96-108) mmol/L Carbon Dioxide 30 H (22-29) mmol/L Anion Gap 8 L (12-20) BUN 17 H (9-16) mg/dL Creatinine 0.93 (0.5-1.4) mg/dL Estim Creat Clear Calc 104.5 Estimated GFR > 60 Random Glucose 111 (60-115) mg/dL Lactic Acid (0.5-2.0) mmol/L Calcium 8.9 (8.4-10.2) mg/dL COVID-19 ([facility]) Negative (Negative) COVID-19 Clin Com See Note 05/13/21 Range/Units 11:02 WBC (4.8-10.8) X10*3/uL RBC (4.60-5.80) X10*6/uL Hgb (14.0-18.0) g/dl Hct (42.0-52.0) % MCV (80.0-98.0) fL MCH (27.0-33.0) pg MCHC (31.0-36.0) g/dl RDW (11.0-16.0) % Plt Count (160-400) X10*3/uL MPV (9.4-12.4) fL Immature Gran % (Auto) (0.0-0.4) % Neut % (Auto) (45-73) % Lymph % (Auto) (20-40) % [place] % (Auto) (2-11) % Eos % (Auto) (0-4) % Baso % (Auto) (0-2) % Lymph # (Auto) (1.2-4.9) X10*3/uL [place] # (Auto) (0.1-1.2) X10*3/uL Eos # (Auto) (0.0-0.4) X10*3/uL Baso # (Auto) (0.0-0.2) X10*3/uL Abs Immat Gran (auto) (0.00-0.03) X10*3/uL Absolute Neuts (auto) (2.0-8.3) x10*3/uL Absolute Nucleated RBC (0.0-0.012) X10*3/uL Nucleated RBC % (auto) (0.0-0.2) /100WBC Sodium (135-145) mmol/L Potassium (3.3-5.1) mmol/L Chloride (96-108) mmol/L Carbon Dioxide (22-29) mmol/L Anion Gap (12-20) BUN (9-16) mg/dL Creatinine (0.5-1.4) mg/dL Estim Creat Clear Calc Estimated GFR Random Glucose (60-115) mg/dL Lactic Acid 0.6 (0.5-2.0) mmol/L Calcium (8.4-10.2) mg/dL COVID-19 ([facility]) (Negative) COVID-19 Clin Com Discharge Plan Discharge Clinical Impression: Dental disease, Cellulitis of face Patient Disposition: Home, Self-Care Instructions: Cellulitis (ED), Mouth Care (ED) Additional Instructions: return to ED for any worsening symptoms or concerns please follow up with dentist as soon as possible Prescriptions: New amoxicillin-pot clavulanate [Augmentin] 875-125 mg tablet 1 tab PO BID Qty: 14 RF: 0 No Action ibuprofen 800 mg tablet 800 mg PO Q8H PRN (Reason: pain) Qty: 20 RF: 0 diazepam [Valium] 5 mg tablet 5 mg PO TID PRN (Reason: muscle spasm) Qty: 10 RF: 0 acetaminophen 500 mg tablet 1,000 mg PO Q6H PRN (Reason: pain) Qty: 30 RF: 0 ibuprofen 600 mg tablet 600 mg PO Q6H PRN (Reason: pain) Qty: 20 RF: 0 cyclobenzaprine 5 mg tablet 5 mg PO TID PRN (Reason: muscle spasm) Qty: 20 RF: 0 lidocaine 4 % adhesive patch,medicated 1 patch topical BID PRN (Reason: pain) Qty: 15 RF: 0 naproxen 500 mg tablet 500 mg PO BID PRN (Reason: pain) Qty: 14 RF: 0 cyclobenzaprine 5 mg tablet 5 mg PO TID PRN (Reason: muscle spasm) 3 Days Qty: 10 RF: 0
[2021-05-13 10:50] VITALS: BP 99/57; PULSE 58; RESP 16; TEMP 36.6; O2SAT 100
[2021-05-13 11:13] LABS: MANUAL DIFF FLAG NO
[2021-05-13 11:14] LABS: Basophils Percent Auto 0.1 % (0-2); Eosinophils Absolute Auto 0.1 X10*3/uL (0.0-0.4); Eosinophils Percent Auto 0.7 % (0-4); Hematocrit 32.3 % (42.0-52.0); Hemoglobin 10.8 g/dl (14.0-18.0); Imm Gran Abs Auto 0.02 X10*3/uL (0.00-0.03); Imm Gran Pct Auto 0.2 % (0.0-0.4); Lymphocytes Percent Auto 11.3 % (20-40); Mean Corpuscular HGB Conc 33.4 g/dl (31.0-36.0); Mean Corpuscular Hemoglobin 29.3 pg (27.0-33.0); Mean Corpuscular Volume 87.5 fL (80.0-98.0); Mean Platelet Volume 10.2 fL (9.4-12.4); Monocytes Absolute Auto 0.5 X10*3/uL (0.1-1.2); Monocytes Percent Auto 6.1 % (2-11); Neutrophils Percent Auto 81.6 % (45-73); Platelet Count 201 X10*3/uL (160-400); Red Blood Count 3.69 X10*6/uL (4.60-5.80); Red Cell Distribution Width 13.7 % (11.0-16.0); White Blood Count 8.6 X10*3/uL (4.8-10.8)
[2021-05-13 11:29] LABS: Lactic Acid 0.6 mmol/L (0.5-2.0)
[2021-05-13 11:29] LABS: COVID-19 Test Negative (Negative)
[2021-05-13 11:44] LABS: Anion Gap 8 (12-20); Blood Urea Nitrogen 17 mg/dL (9-16); Calcium 8.9 mg/dL (8.4-10.2); Carbon Dioxide 30 mmol/L (22-29); Chloride 103 mmol/L (96-108); Creatinine Clr Calc Pharmacy 104.5; Estimated Glomerular Filt Rate > 60; Glucose Random 111 mg/dL (60-115); Potassium 4.3 mmol/L (3.3-5.1); Sodium 137 mmol/L (135-145)
[2021-05-13] MEDS: Ketorolac Tromethamine 30 MG/ML VIAL IVPUSH (11:44)
[2021-05-13] MEDS: Piperacillin Sodium/Tazobactam 3.375 GM in 0.9 % Sodium Chloride 50 ML IV (11:44)
[2021-05-13] MEDS: 0.9 % Sodium Chloride 1,000 ML 999 ML IV (11:45)
[2021-05-13] MEDS: iohexoL 350 MG/ML 100 ML INFUS..BTL 85 ML IV (12:22)
[2021-05-13 13:01] VITALS: BP 93/44; PULSE 52; RESP 18; TEMP 36.5; O2SAT 100
== END 2021-05-13 13:35 | disposition home or self-care (01) ==
PROVIDERS: Emergency Provider Emergency Medicine
DX: K08.89 Other specified disorders of teeth and supporting structures (principal); L03.211 Cellulitis of face; Z20.822 Contact with and (suspected) exposure to COVID-19; F11.10 Opioid abuse, uncomplicated; F17.200 Nicotine dependence, unspecified, uncomplicated
CPT/HCPCS: 36415; 70487; 80048; 83605; 85025; 87040; 87635; 96361; 96365; 96375; 99284; J1885; J2543; Q9967